=== PATIENT | male | born 1995 | race Two or more races ===

== ENCOUNTER 2024-03-30 14:12 | Emergency (ER) | payer OTHER ==
[~2024-03-30] VITALS: Ht 177.8 cm; Wt 65.8 kg
[2024-03-30 14:36] VITALS: TEMP 98.8
[2024-03-30] MEDS: IV NS 0.9% 1,000 ML BAG IV ONE (15:00)
[2024-03-30 15:18] LABS: BASOPHILS % (AUTO) 0.2 % (0.0-2.0); EOSINOPHILS # (AUTO) 0.3 K/uL (0.0-0.7); EOSINOPHILS % (AUTO) 3.3 % (0.0-6.0); HEMATOCRIT 36 % (39-51); HEMOGLOBIN 12.3 g/dL (13.5-17.5); LYMPHOCYTES % (AUTO) 10.7 % (20.0-44.0); MEAN CORPUSCULAR HEMOGLOBIN 30 PG (26.0-33.0); MEAN CORPUSCULAR HGB CONC 34 g/dl (31.0-36.0); MEAN CORPUSCULAR VOLUME 88 fL (80-96); MONOCYTES # (AUTO) 1.4 K/uL (0.1-1.30); MONOCYTES % (AUTO) 15.2 % (2.0-12.0); NEUTROPHILS # (AUTO) 6.3 K/uL (1.8-8.9); NEUTROPHILS % (AUTO) 70.6 % (43.0-81.0); PLATELET COUNT (AUTO) 345 K/uL (150-450); RED BLOOD CELL COUNT(AUTO) 4.06 MIL/uL (4.5-6.0); RED CELL DISTRIBUTION WIDTH 13.7 % (11.5-15.0)
[2024-03-30 15:29] LABS: CALCIUM, SERUM 8.8 mg/dL (8.5-10.1); POTASSIUM 3.8 mmol/L (3.5-5.1)
[2024-03-30 15:32] LABS: C-REACTIVE PROTEIN 7.36 mg/dL (0.0-0.30)
[2024-03-30] MEDS ORDERED: methylPREDNISolone SOD SUCC 125 MG/2ML VIAL ONE (16:06)
[2024-03-30] MEDS: methylPREDNISolone SOD SUCC 125 MG/2ML VIAL IV ONE (16:10)
[2024-03-30] MEDS ORDERED: PRED20TA PO (16:29)
[2024-03-30 18:02] VITALS: BP 132/68; O2SAT 100
[2024-03-30 20:24] LABS: ANISOCYTOSIS 1+; EOSINOPHILS % (MANUAL) 2 % (0-4); LYMPHOCYTES % (MANUAL) 18 % (16-48); MONOCYTES % (MANUAL) 12 % (0-11.0); NEUTROPHILS % (MANUAL) 68 (42-76); PLATELET ESTIMATE ADEQUATE
[2024-03-30 20:33] LABS: ERYTHROCYTE SEDIMENTATION RATE 38 MM/HR (0-15)
== END 2024-03-30 17:03 | disposition home or self-care (01) ==
LOC: EDSEX 14:20 → ER 14:20
DX: K51.90 Ulcerative colitis, unspecified, without complications (principal)
CPT/HCPCS: 99283; 96374; 96361; 85025; 80048; 85652; 36415; 86140; 85007; J2919; J7030